=== PATIENT | male | born 1955 | race African-American/Black ===

== ENCOUNTER 2023-03-28 12:07 | Emergency (ER) | payer BC ==
[~2023-03-28] VITALS: Ht 182.9 cm; Wt 91.0 kg
[2023-03-28 12:33] VITALS: O2SAT 98
[2023-03-28 14:08] LABS: CLARITY URINE CLEAR (CLEAR); COLOR URINE YELLOW (YELLOW); GLUCOSE URINE NEGATIVE (NEGATIVE); KETONES URINE NEGATIVE (NEGATIVE); LEUKOCYTE ESTERASE URINE TRACE (NEGATIVE); NITRITE URINE NEGATIVE (NEGATIVE); OCCULT BLOOD URINE 3+ (NEGATIVE); PH URINE 6.5 (4.5-8.0); PROTEIN URINE NEGATIVE (NEGATIVE); SPECIFIC GRAVITY URINE 1.005 (1.005-1.030); UROBILINOGEN URINE 0.2 E.U./dL (0.2-1.0)
[2023-03-28 14:10] LABS: BACTERIA URINE NONE SEEN; SQUAMOUS EPITHELIAL CELL URINE NONE SEEN /lpf (RARE/1+); WBC URINE 0-2 /hpf (0-2); YEAST URINE NONE SEEN
[2023-03-28 14:57] VITALS: BP 145/89; PULSE 94; RESP 18; TEMP 98
== END 2023-03-28 14:58 | disposition home or self-care (01) ==
LOC: ER 12:07
DX: R31.9 Hematuria, unspecified (principal)
CPT/HCPCS: 81003; 99283